=== PATIENT | male | born 1965 | race Caucasian/White ===

== ENCOUNTER → 2024-02-13 06:33 | Day surgery (SDC) | payer OTHER, SELFPAY | LOC: GI 06:33 | PROVIDERS: ATTENDING PHYSICIAN Internal Medicine Gastroenterology | DX: Z12.11 Encounter for screening for malignant neoplasm of colon (principal); K57.30 Diverticulosis of large intestine without perforation or abscess without bleeding; K64.8 Other hemorrhoids; Z86.010 Personal history of colon polyps | CPT/HCPCS: G0105 ==

== ENCOUNTER → 2025-04-26 14:13 | Outpatient (REF) | payer OTHER, SELFPAY | LOC: UCDH 14:13 | PROVIDERS: FAMILY PHYSICIAN Physician Assistant Medical | DX: S29.9XXA Unspecified injury of thorax, initial encounter (principal) | CPT/HCPCS: 71101 ==